=== PATIENT | female | born 1940 | race Caucasian/White ===

== ENCOUNTER 2016-10-06 18:32 | Emergency (ER) | payer MEDICARE ==
--- NOTE | ~2016-10-06 | CT2 ---
[facility] A Service of [facility] RADIOLOGY TEXT RESULTS PATIENT: MIGUEL ÁNGEL GAVIRIA LOCATION: [facility] : 40 UNIT #: [id number] AGE: [address]: Mil Carvalho MD SEX: F ORDER DR: [id number] [facility] [address] [place], [place] [address] [id number] E MR#: [id number] Acc #: [id number] NAME: MIGUEL ÁNGEL GAVIRIA : 1940 SEX: F STUDY DATE/TIME: 10/06/2016 20:16 UNIT: [facility] ROOM: STUDY DESCRIPTION: CT Abd and Pelv W Cont Attending Physician: Mil Carvalho M.D. Ordering Physician: Ben Ray D.O. Primary Care Physician: Sujata Paul M.D. MEDICAL IMAGING REPORT This report is preliminary unless electronic signature is present EXAM CT abdomen and pelvis with contrast HISTORY 76-year-old female, colorectal bleeding, nausea, abdominal pain and distension for 4 weeks. TECHNIQUE Axial images performed through the abdomen and pelvis following IV and oral contrast. Multiplanar reconstructed images reviewed at a workstation. This CT exam was performed with one or more of the following radiation dose reduction techniques: automatic exposure control, adjustment of mA and/or kV according to patient size, and iterative reconstruction. FINDINGS ABDOMEN: Lung bases unremarkable. The liver suggests mild fatty infiltration. Patient is post cholecystectomy with mild prominence of the common bile duct not unexpected in a postcholecystectomy patient. Pancreas, kidneys and adrenal glands unremarkable. No free air or free fluid. The GI tract remarkable for colonic diverticulosis particularly involving the sigmoid colon but no active diverticulitis. Aorta and IVC unremarkable except for minimal atherosclerotic changes. PELVIS: Bladder is unremarkable. Uterus surgically absent. Degenerative changes noted lumbar spine. IMPRESSION 1. Colonic diverticulosis predominately involving the sigmoid colon but no convincing evidence of acute diverticulitis. 2. Fatty liver. Dictated by... [facility] Service of [facility] RADIOLOGY TEXT RESULTS PATIENT: MIGUEL ÁNGEL GAVIRIA [id number] UNIT #: [id number] AGE: [address]: Mil Carvalho MD SEX: F ORDER DR: Elías Mtz M.D. THIS IS AN ELECTRONICALLY VERIFIED REPORT Elías Mtz M.D. at 10/07/2016 10:06 AM Rayshawn TD: 10/07/2016 09:40 JOB #: [id number] MEDICAL IMAGING REPORT Page 1 of 1 COPY
[2016-10-06 15:14] LABS: BASOPHIL% 0.4 % (0-2.5); DIFF IND NO; EOSINOPHIL# 0.1 X10e3 (0-0.7); EOSINOPHIL% 1.7 % (0.0-7.0); HEMATOCRIT 36.8 % (35.0-45.0); HEMOGLOBIN 12.1 gm/dL (12.0-16.0); LYMPHOCYTE# 2.8 X10e3 (1.0-3.5); MEAN CELL VOLUME 91.3 FL (83-96); MEAN CORPUSCULAR HEMOGLOBIN 30.1 PG (28-34); MEAN PLATELET VOLUME 7.8 FL (6.5-11.5); MONOCYTE# 0.7 X10e3 (0-1.0); NEUTROPHIL# 3.8 X10e3 (1.5-7.1); NEUTROPHIL% 50.9 % (40-75); PLATELET COUNT 265 X10e3 (140-420); RED BLOOD COUNT 4.03 X10e (3.90-5.30); RED CELL DISTRIBUTION WIDTH 13.1 % (11.0-15.5); WHITE BLOOD COUNT 7.4 X10e3 (4.0-10.5)
[2016-10-06 15:24] LABS: PARTIAL THROMBOPLASTIN TIME 25.2 SECONDS (23.5-31.3); PROTHROMBIN TIME (PATIENT) 10.2 SECONDS (9.6-11.5)
[2016-10-06 15:40] LABS: ALBUMIN SERUM 4.1 g/dL (3.5-5.0); BILIRUBIN, DIRECT 0.1 mg/dL (0.0-0.2); BILIRUBIN,INDIRECT 0.5 mg/dL (0.0-0.9); BILIRUBIN,TOTAL 0.6 mg/dL (0.2-2.0); BUN/CREATININE RATIO 17.77; CALCIUM SERUM 9.4 mg/dL (8.4-10.2); CREATININE SERUM 0.9 mg/dL (0.6-1.4); GLOM FILT RATE Estimated 62.2 mL/min (>60); PROTEIN TOTAL SERUM 7.2 g/dL (6.0-8.3)
[~2016-10-06 18:32] MED LIST: ALBUTEROL17 GM INH; AMBIEN PO; AMBIEN10 MG PO; ANTIDEPRESSANT; ANXIETY MED PO; ASPIRIN EC81 M1 PO; ATIVAN PO; AUGMENTIN; BP MED; CELEXA PO; CELEXA20 MG PO; CHOLESTROL MED; CIPRO PO; CLEOCIN HCL150 MG PO; DIOVAN HCT 3201 EAC1 PO; EFFEXOR-XR75 MG PO; MEDROL4 MG/DOSE- PO; NEXIUM PO; NORCO 5/325 TAB1 TAB PO; NORVASC PO; PREDNISONE10 MG PO; PROTONIX PO; QVAR7.3 GM INH; SYNTHROID PO; SYNTHROID88 MCG PO; THYROID MED; VITAMIN D50000 UNIT PO; WALGREENS PHARMACY; ZESTRIL10 M1 PO; ZOCOR PO
== END 2016-10-06 21:38 | disposition home or self-care (01) ==
LOC: CED 18:32
DX: K62.5 Hemorrhage of anus and rectum (principal); J45.909 Unspecified asthma, uncomplicated; E78.5 Hyperlipidemia, unspecified; Z90.49 Acquired absence of other specified parts of digestive tract; Z90.710 Acquired absence of both cervix and uterus; Z98.890 Other specified postprocedural states
CPT/HCPCS: 36415; 74177; 80048; 80076; 83690; 85025; 85610; 85730; 96360; 99284; Q9967

== ENCOUNTER → 2016-10-15 | Outpatient (CLI) | payer MEDICARE ==
--- NOTE | ~2016-10-15 | CT2 ---
[facility]. [facility] A Service of [facility] RADIOLOGY TEXT RESULTS PATIENT: MIGUEL ÁNGEL GAVIRIA LOCATION: [facility] : 40 UNIT #: [id number] AGE: [address]: Josafat Norman MD SEX: F ORDER DR: [id number] [facility] [address] [place], [place] [address] [id number] O MR#: [id number] Acc #: [id number] NAME: MIGUEL ÁNGEL GAVIRIA : 1940 SEX: F STUDY DATE/TIME: 10/15/2016 14:48 UNIT: [facility] ROOM: STUDY DESCRIPTION: CT Abd and Pelv W Cont Attending Physician: Josafat Norman M.D. Referring Physician: Josafat Norman M.D. Ordering Physician: Josafat Norman M.D. Primary Care Physician: Sujata Paul M.D. MEDICAL IMAGING REPORT This report is preliminary unless electronic signature is present EXAM CT abdomen and pelvis with oral and IV contrast. DATE OF EXAM 10/15/2016 HISTORY Left lower quadrant pain for 4 weeks. TECHNIQUE NOTE: This CT exam was performed with one or more of the following radiation dose reduction techniques: automatic exposure control, adjustment of mA and/or kV according to patient size, and iterative reconstruction. FINDINGS CT abdomen and pelvis was performed with oral and IV contrast and is compared to CT 10/06/2016 CT ABDOMEN: There is a small hiatal hernia, larger than on the prior exam, and there is diffuse fatty infiltration of the liver. No hepatic mass. No biliary ductal dilatation. Cholecystectomy. The spleen, pancreas, kidneys, and adrenal glands are normal. Incidental descending duodenal diverticulum measuring just over 3 cm. Moderate diverticulosis in the descending colon. No free fluid. No inflammatory stranding. No adenopathy. CT PELVIS: Extensive sigmoid diverticulosis. No diverticulitis. No inflammatory stranding. No free fluid. Hysterectomy. The urinary bladder is normal. Mildly enlarged left distal external iliac node measuring 1.2 cm is slightly larger than on the prior CT, and could be a reactive or inflammatory node. Several subcentimeter inguinal nodes bilaterally are also noted and are stable. Moderately severe degenerative STS. [facility] A Service of [facility] RADIOLOGY TEXT RESULTS PATIENT: MIGUEL ÁNGEL GAVIRIA LOCATION: [facility] : 40 UNIT #: [id number] AGE: [address]: Josafat Norman MD SEX: F ORDER DR: changes in the lower lumbar spine including degenerative disc disease and advanced disc space narrowing at L5-S1. IMPRESSION 1. No acute findings in the abdomen or pelvis. 2. Extensive sigmoid diverticulosis and moderate descending colonic diverticulosis but no diverticulitis. 3. Fatty infiltration of the liver. 4. Small hiatal hernia. 5. Incidental descending duodenal diverticulum measuring just over 3 cm. 6. Mildly enlarged lymph node along the distal left external iliac chain measuring 1.2 cm is slightly larger than on the prior CT and could be reactive or inflammatory. 7. Hysterectomy and cholecystectomy. Dictated by... Sav Biswas M.D. THIS IS AN ELECTRONICALLY VERIFIED REPORT Sav Biswas M.D. at 10/15/2016 10:51 PM CARLOS A/mirtha TD: 10/15/2016 20:48 JOB #: [id number] MEDICAL IMAGING REPORT Page 1 of 1 COPY
== END | disposition home or self-care (01) ==
LOC: CCAT 09:16
DX: R10.32 Left lower quadrant pain (principal); K57.30 Diverticulosis of large intestine without perforation or abscess without bleeding; K76.0 Fatty (change of) liver, not elsewhere classified; K44.9 Diaphragmatic hernia without obstruction or gangrene; R59.0 Localized enlarged lymph nodes; Z87.19 Personal history of other diseases of the digestive system; Z90.710 Acquired absence of both cervix and uterus; Z90.49 Acquired absence of other specified parts of digestive tract
CPT/HCPCS: 74177; Q9967